=== PATIENT | female | born 1995 | race Caucasian/White ===

== ENCOUNTER 2018-06-19 10:18 | Emergency (ER) | payer OTHER ==
[~2018-06-19] VITALS: Ht 167.6 cm; Wt 127.0 kg
[~2018-06-19 10:18] MED LIST: KEFLEX500 MG PO; TRIAMCINOLONE A15 G1 TP
[2018-06-19] MEDS ORDERED: CIPROFLOXIN HC2.5 M1 OPHTHALMIC (11:00)
[2018-06-19 11:07] VITALS: BP 170/96
== END 2018-06-19 11:07 | disposition home or self-care (01) ==
LOC: M.ERS 10:18
DX: H10.9 Unspecified conjunctivitis (principal)